=== PATIENT | female | born 1965 | race Caucasian/White ===

== ENCOUNTER → 2017-08-20 | Outpatient (CLI) | payer BC ==
[~2017-08-20] VITALS: Ht 162.6 cm; Wt 138.8 kg
[~2017-08-20] MED LIST: HYDROCHLOROTHIA25 MG PO; Hydrodiuril,Oretic,E PO; LISINOPRIL20 MG PO; Norvasc PO; SEROQUEL400 MG PO; SEROquel PO; ZOLOFT100 MG PO; ZYRTEC10 M3 PO; Zestril,Prinivil PO
== END | disposition home or self-care (01) ==
LOC: AMB 14:02
PROC: 0DBN8ZX Excision of Sigmoid Colon, Via Natural or Artificial Opening Endoscopic, Diagnostic (ICD-10-PCS; principal; 2017-08-20)
DX: Z12.11 Encounter for screening for malignant neoplasm of colon (principal); D12.5 Benign neoplasm of sigmoid colon; K64.8 Other hemorrhoids; E66.9 Obesity, unspecified; Z68.43 Body mass index [BMI] 50.0-59.9, adult; Z83.71 Family history of colonic polyps; I10 Essential (primary) hypertension; G47.30 Sleep apnea, unspecified; Z88.0 Allergy status to penicillin
CPT/HCPCS: 88305; 93005; J2250